=== PATIENT | male | born 1995 | race African-American/Black ===

== ENCOUNTER 2023-08-08 00:38 | Emergency (ER) | payer BC, MEDICAID ==
[~2023-08-08] VITALS: Ht 177.8 cm; Wt 70.0 kg
[2023-08-08 00:40] VITALS: BP 139/96; O2SAT 98
[2023-08-08 01:38] VITALS: PULSE 100; RESP 18; TEMP 98.5
== END 2023-08-08 01:40 | disposition home or self-care (01) ==
LOC: ER 00:38
DX: S00.81XA Abrasion of other part of head, initial encounter (principal); R51.9 Headache, unspecified; W18.30XA Fall on same level, unspecified, initial encounter; Y93.89 Activity, other specified; Y92.89 Other specified places as the place of occurrence of the external cause; Y99.8 Other external cause status
CPT/HCPCS: 70450; 99284; Z7610 ×2